=== PATIENT | female | born 1960 | race Caucasian/White ===

== ENCOUNTER 2017-07-23 18:13 | Emergency (ER) | payer OTHER ==
[~2017-07-23 18:13] MED LIST: CARI1TAB34; CARI350T19 PO; GABA300C3 PO; IBUP800 PO; IBUP800T23 PO; LORTA10 PO; ROPI2TAB23 PO; TIZA4 PO
[2017-07-23 18:17] VITALS: BP 158/88; PULSE 79; RESP 16; TEMP 98.6; O2SAT 99
--- NOTE | 2017-07-23 19:47 | RADRPT ---
EXAM DATE/TIME: 07/23/2017 18:41 [place] COMPARISON: No previous studies available for comparison. INDICATIONS : Patient fell on left arm yesterday. Now arm is constantly cold and her wrist wont stay rigid. MEDICAL HISTORY : Fibromyalgia. SURGICAL HISTORY : None. ENCOUNTER: Initial ACUITY: 2 days PAIN SCORE: 2/10 LOCATION: Left forearm. FINDINGS: Two view examination of the left forearm demonstrates no evidence of fracture or dislocation. Bony m ineralization is normal. The soft tissue structures are intact. CONCLUSION: Unremarkable examination of the left forearm. Shilo Nguyễn MD on July 23, 2017 at 19:45 Board Certified Radiologist. This report was verified electronically.
[2017-07-23] MEDS ORDERED: ASPI-183 PO (19:52)
[2017-07-23] MEDS ORDERED: GABA300C5 PO (19:52)
[2017-07-23] MEDS ORDERED: PRED-503 PO (19:56)
--- NOTE | 2017-07-23 20:02 | PD ---
HPI Chief Complaint: Injury Time Seen by Provider: 19:41 Travel History International Travel<30 days: No Contact w/Intl Traveler<30days: No Traveled to known affect area: No History of Present Illness HPI 57-year-old white female presents emergency department with inability to extend her wrist or open her fingers or raise her thumb after sleeping in the chair yesterday. She states that when she had gone to sleep she was able to move her arm. This has persisted throughout the day. She denies drinking a large amount of alcohol. Symptoms are severe. She denies any pain. PFSH Past Medical History Narrative Medical Fibromyalgia, chronic pain,DJD, spinal stenosis Arthritis: Yes (RA) Diminished Hearing: No Fibromyalgia: Yes Immunizations Current: No Tetanus Vaccination: < 5 Years Menopausal: Yes Past Surgical History Surgical History: No Previous Surgery Social History Alcohol Use: No Tobacco Use: Yes (1 PPD) Substance Use: No Allergies-Medications (Allergen,Severity, Reaction): Coded Allergies: diatrizoate meglumine (Unverified Allergy, Severe, Anaphylaxis, 01/16/17) gadobenic acid (Unverified Allergy, Severe, Anaphylaxis, 01/16/17) gadodiamide (Unverified Allergy, Severe, Anaphylaxis, 01/16/17) gadoteridol (Unverified Allergy, Severe, Anaphylaxis, 01/16/17) iodixanol (Unverified Allergy, Severe, Anaphylaxis, 01/16/17) iohexol (Unverified Allergy, Severe, Anaphylaxis, 01/16/17) Sulfa (Sulfonamide Antibiotics) (Unverified Allergy, Mild, 01/16/17) doxycycline (Unverified Allergy, Mild, 01/16/17) erythromycin base (Unverified Allergy, Mild, 01/16/17) iodine (Unverified Allergy, Mild, 01/16/17) methotrexate (Unverified Allergy, Mild, 01/16/17) minocycline (Unverified Allergy, Mild, 01/16/17) potassium iodide (Unverified Allergy, Mild, 01/16/17) povidone-iodine (Unverified Allergy, Mild, 01/16/17) sodium iodide (Unverified Allergy, Mild, 01/16/17) sodium iodide (Unverified Allergy, Mild, 01/16/17) tigecycline (Unverified Allergy, Mild, 01/16/17) Uncoded Allergies: ANTIBIOTICS (Adverse Reaction, Unknown, UNKNOWN, 02/08/14) PT STATES ALL ANTIBIOTICS CAUSE HER TO HAVE A REACTION, COULD NOT STATE EXACT REACTION Reported Meds & Prescriptions Reported Meds & Active Scripts Active Deltasone (Prednisone) 20 Mg Tab 20 Mg PO BID 7 Days Reported Gabapentin 300 Mg Cap 300 Mg PO TID Aspirin 325 Mg Tab 325 Mg PO DAILY Review of Systems Except as stated in HPI: all other systems reviewed are Neg Musculoskeletal: Positive: Arthralgias, Limited ROM, Weakness, Pain Physical Exam Narrative GENERAL: This is a well-nourished, well-developed patient, in no apparent distress. SKIN: No rashes, ecchymoses or lesions. Warm and dry. HEAD: Atraumatic. Normocephalic. EYES: PERRL, EOMI, no discharge or injection. No scleral icterus. EARS: Clear NOSE: Nasal turbinates appear normal. THROAT: Mucosa pink and moist. Airway patent. NECK: Trachea midline. supple, moves head freely. LUNGS: Clear to auscultation. CV: Regular in rhythm. ABDOMEN: Soft nontender. EXT: No clubbing cyanosis or edema. Examination of the left upper extremity reveals a wrist drop. She is unable to extend her wrist, raise her thumb and fingers. no complete sensory loss. Patient does have some hypoesthesia. Data Data Last Documented VS Vital Signs Date Time Temp Pulse Resp B/P (MAP) Pulse Ox O2 Delivery O2 Flow Rate FiO2 07/23/17 18:17 98.6 79 16 158/88 (111) 99 Orders Orders Forearm (2vws) (07/23/17 ) Splint Or Brace Apply/Monitor (07/23/17 19:54) Ed Discharge Order (07/23/17 19:54) [facility] Medical Decision Making Medical Screen Exam Complete: Yes Emergency Medical Condition: Yes Medical Record Reviewed: Yes Interpretation(s) Last 24 hours Impressions Radius/Ulna X-Ray 07/23/17 0000 Signed Impressions: Service Date/Time: Sunday, July 23, 2017 18:41 - CONCLUSION: Unremarkable examination of the left forearm. Shilo Nguyễn MD Differential Diagnosis Differential diagnosis: Fracture, sprain, strain, nerve injury Narrative Course Patient has a radial nerve palsy. Patient's placed in a Velcro wrist splint. Diagnosis Primary Impression: Acute radial nerve palsy of left upper extremity Patient Instructions: General Instructions Additional Instructions: Rest. Elevation. Velcro wrist splint. Prednisone. Follow up with your doctor this week for recheck. Consider physical therapy. Med/Other Pt SpecificInfo: Prescription(s) given Scripts Prednisone (Deltasone) 20 Mg Tab 20 MG PO BID for 7 Days, #14 TAB 0 Refills Prov: Armani Paris MD 07/23/17 Disposition: 01 DISCHARGE HOME Condition: Stable Harrison De La Paz Jul 23, 2017 20:02
== END 2017-07-23 20:21 | disposition home or self-care (01) ==
LOC: NEPD 18:13
DX: G56.32 Lesion of radial nerve, left upper limb (principal); M79.7 Fibromyalgia; M06.9 Rheumatoid arthritis, unspecified; Z72.0 Tobacco use
CPT/HCPCS: 73090; 99283; L3908

== ENCOUNTER 2018-05-15 13:48 | Inpatient (IN) ==
[2018-05-15] MEDS ORDERED: MethylPREDNISolone Sod Succinate Inj 125 MG/2 ML Vial IV.PUSH ONE (14:15)
--- NOTE | 2018-05-15 14:50 | XR ---
EXAM DATE: 05/15/2018 2:42 PM EST AGE/SEX: 58 years / Female INDICATIONS: Short of breath. CLINICAL DATA: This is the patient's initial encounter. Patient reports that signs and symptoms have been present for 1 day and indicates a pain score of 0/10. MEDICAL/SURGICAL HISTORY: . Fibromyalgia. None. COMPARISON: No prior exams available for comparison. FINDINGS: Lungs are moderately hyperinflated. There is consolidation, pleural effusion or pneumothorax. The heart and pulmonary vascularity are normal. The portion of the bony skeleton visualized is unremarkable. CONCLUSION: Moderately hyperinflated otherwise negative Electronically signed by: Derick Rivera MD 05/15/2018 2:48 PM EST
[2018-05-15 14:58] LABS: Baso % (Auto) 0.3 % (0.0-2.0); Hematocrit 47.1 % (35.0-46.0); Hemoglobin 15.8 gm/dL (11.6-15.3); Lymph # (Auto) 1.3 th/mm3 (1.0-4.8); Lymph % (Auto) 10.4 % (9.0-44.0); Mean Corpuscular HGB Conc 33.6 % (32.0-36.0); Mean Corpuscular Hemoglobin 33.4 pg (27.0-34.0); Mean Corpuscular Volume 99.3 fL (80.0-100.0); Mean Platelet Volume 9.4 fL (7.0-11.0); Mono # (Auto) 1.5 th/mm3 (0.0-0.9); Mono % (Auto) 12.1 % (0.0-8.0); Neut # (Auto) 9.6 th/mm3 (1.8-7.7); Neut % (Auto) 77.2 % (16.0-70.0); Platelet Count 247 th/mm3 (150-450); Red Blood Count 4.74 mil/mm3 (4.00-5.30); Red Cell Distribution Width 13.9 % (11.6-17.2); White Blood Count 12.4 th/mm3 (4.0-11.0)
[2018-05-15 15:25] LABS: Alanine Aminotransferase 36 U/L (10-53); Albumin 3.2 g/dL (3.4-5.0); Anion Gap 5 meq/L (5-15); Aspartate Aminotransferase 38 U/L (15-37); Blood Urea Nitrogen 27 mg/dL (7-18); Carbon Dioxide 33.3 meq/L (21.0-32.0); Chloride 100 meq/L (98-107); Glomerular Filtration Rate 81 mL/min (>89); Glucose,Random 143 mg/dL (74-106); Magnesium 2.4 mg/dL (1.5-2.5); Potassium 3.3 meq/L (3.5-5.1); Sodium 138 meq/L (136-145)
[2018-05-15 15:27] LABS: Alkaline Phosphatase 131 U/L (45-117); Total Protein 8.8 g/dL (6.4-8.2)
--- NOTE | 2018-05-15 15:44 | ED ---
HPI General Chief Complaint: Shortness of Breath/Dyspnea Stated Complaint: SOB Time Seen by Provider: 05/15/18 14:14 Source: patient Mode of arrival: EMS Limitations: no limitations History of Present Illness Patient is a 58-year-old female presenting to the emergency department for evaluation of shortness of breath. Patient states it started 1 week ago. She states she has a cough which is productive with clear sputum. She reports subjective fevers and chills, night sweats. Shortness of breath is worse with exertion and when laying flat. She reports chest tightness. She states she has been compliant with Symbicort and pro-air at home. Patient arrives by EMS, she was given 1 DuoNeb, one albuterol treatment and Solu-Medrol in route. Patient is a daily tobacco user, she is not on any oxygen at home. Symptom onset was gradual, symptoms are moderate. Patient denies any chest pain, abdominal pain, headache, dizziness. Related Data Home Medications Medication Instructions Recorded Confirmed albuterol sulfate [ProAir 2 inh INHALATION Q6H 05/15/18 05/15/18 RespiClick] albuterol sulfate [Ventolin HFA] 1 puff INHALATION Q4-6H PRN 05/15/18 05/15/18 budesonide-formoterol [Symbicort] 2 puff INHALATION Q12H 05/15/18 05/15/18 Allergies Allergy/AdvReac Type Severity Reaction Status Date / Time diatrizoate meglumine Allergy Severe Anaphylaxis Verified 05/15/18 13:59 gadobenic acid Allergy Severe Anaphylaxis Verified 05/15/18 13:59 gadodiamide Allergy Severe Anaphylaxis Verified 05/15/18 13:59 gadoteridol Allergy Severe Anaphylaxis Verified 05/15/18 13:59 iodixanol Allergy Severe Anaphylaxis Verified 05/15/18 13:59 iohexol Allergy Severe Anaphylaxis Verified 05/15/18 13:59 doxycycline Allergy Mild Rash Verified 05/15/18 13:59 erythromycin base Allergy Mild Anaphylaxis Unverified 05/15/18 13:59 iodine Allergy Mild Hives Unverified 05/15/18 13:59 methotrexate Allergy Mild Hives Unverified 05/15/18 13:59 minocycline Allergy Mild Hives Unverified 05/15/18 13:59 potassium iodide Allergy Mild Anaphylaxis Unverified 05/15/18 13:59 povidone-iodine Allergy Mild Anaphylaxis Unverified 05/15/18 13:59 sodium iodide Allergy Mild Anaphylaxis Unverified 05/15/18 13:59 sodium iodide Allergy Mild Anaphylaxis Unverified 05/15/18 13:59 Sulfa (Sulfonamide Allergy Mild Hives Verified 05/15/18 13:59 Antibiotics) tigecycline Allergy Mild Hives Unverified 05/15/18 13:59 ANTIBIOTICS AdvReac Unknown UNKNOWN Uncoded 02/08/14 23:22 Review of Systems ROS: all other systems reviewed are negative [facility] Medical History Medical History COPD (chronic obstructive pulmonary disease) (Acute) Hypothyroid (Acute) Radial nerve palsy (Acute) Social History Social History Substance History: No History of Abuse Second Hand Smoke Exposure: No Smoking Status: Current every day smoker Tobacco Type: Cigarettes How Often Do You Have a Drink Containing Alcohol: 4 or more times a week Recent Travel in [facility] within the Last 8 Weeks: No Recent Out of Country Travel within the Last 8 Weeks: No Immunization History Tetanus Immunization: >5 Years Exam Narrative Exam Narrative: GENERAL: Thin, well-developed, alert female. Presenting in no acute distress. SKIN: Focused skin assessment warm/dry. HEAD: Atraumatic. Normocephalic. EYES: Pupils equal and round. No scleral icterus. No injection or drainage. ENT: No nasal bleeding or discharge. Mucous membranes pink and moist. NECK: Trachea midline. No JVD. CARDIOVASCULAR: Regular rate and rhythm. No murmur appreciated. RESPIRATORY: Tachypnea, diminished breath signs throughout. GASTROINTESTINAL: Abdomen soft, non-tender, nondistended. Hepatic and splenic margins not palpable. MUSCULOSKELETAL: No obvious deformities. No clubbing. No cyanosis. No edema. NEUROLOGICAL: Awake and alert. No obvious cranial nerve deficits. Motor grossly within normal limits. Normal speech. PSYCHIATRIC: Appropriate mood and affect; insight and judgment normal. Course Initial Documented Vital Signs Temperature 98.2 F 05/15/18 14:09 Last Documented Vital Signs Temperature 98.2 F 05/15/18 14:09 Pulse Rate 103 H 05/15/18 16:07 Respiratory Rate 20 05/15/18 16:07 Blood Pressure 167/114 H 05/15/18 16:07 Pulse Oximetry 95 05/15/18 16:07 Medical Decision Making MDM Narrative Medical decision making narrative: Patient is a 58-year-old female presenting with shortness of breath. Patient is tachypneic and tachycardic on arrival. Labs and imaging ordered and pending, additional nebulizer treatments ordered. Labs reviewed, white blood cell count of 12.4 with slight left shift. Potassium 3.3, oral replacement ordered. Chest x-ray shows hyperinflation otherwise no acute findings. Heart rate has trended down to low 100s, attempted to ambulate patient on room air to assess O2 saturation, patient became tachypneic and her O2 sat dropped to the upper 70s just by moving around in the bed. Patient will be admitted to improve respiratory status, Dr. Thurston accepted admit. Orders placed. Medical Screen Exam Complete: Yes Emergency Medical Condition: Yes Differential Diagnosis Differential Diagnosis: COPD exacerbation versus pneumonia versus bronchitis versus other Medical Records Medical records reviewed: Yes I reviewed the patient's medical records. Lab Data Lab results reviewed: Yes I reviewed the patient's lab results. Result diagrams: 05/15/18 14:38 05/15/18 14:38 Lab Results 05/15/18 05/15/18 Range/Units 14:38 14:38 WBC 12.4 H (4.0-11.0) th/mm3 RBC 4.74 (4.00-5.30) mil/mm3 Hgb 15.8 H (11.6-15.3) gm/dL Hct 47.1 H (35.0-46.0) % MCV 99.3 (80.0-100.0) fL MCH 33.4 (27.0-34.0) pg MCHC 33.6 (32.0-36.0) % RDW 13.9 (11.6-17.2) % Plt Count 247 (150-450) th/mm3 MPV 9.4 (7.0-11.0) fL Neut % (Auto) 77.2 H (16.0-70.0) % Lymph % (Auto) 10.4 (9.0-44.0) % Barron % (Auto) 12.1 H (0.0-8.0) % Eos % (Auto) 0.0 (0.0-4.0) % Baso % (Auto) 0.3 (0.0-2.0) % Neut # (Auto) 9.6 H (1.8-7.7) th/mm3 Lymph # (Auto) 1.3 (1.0-4.8) th/mm3 Barron # (Auto) 1.5 H (0.0-0.9) th/mm3 Eos # (Auto) 0.0 (0.0-0.4) th/mm3 Baso # (Auto) 0.0 (0.0-0.2) th/mm3 WBC Differential . Differential Comment Auto diff final Sodium 138 (136-145) meq/L Potassium 3.3 L (3.5-5.1) meq/L Chloride 100 (98-107) meq/L Carbon Dioxide 33.3 H (21.0-32.0) meq/L Anion Gap 5 (5-15) meq/L BUN 27 H (7-18) mg/dL Creatinine 0.74 (0.50-1.00) mg/dL Estimated GFR 81 L (>89) mL/min Random Glucose 143 H (74-106) mg/dL Calcium 9.0 (8.5-10.1) mg/dL Magnesium 2.4 (1.5-2.5) mg/dL Total Bilirubin 0.6 (0.2-1.0) mg/dL AST 38 H (15-37) U/L ALT 36 (10-53) U/L Alkaline Phosphatase 131 H (45-117) U/L Total Protein 8.8 H (6.4-8.2) g/dL Albumin 3.2 L (3.4-5.0) g/dL Imaging Data Radiologist's impression: Chest X-Ray 05/15/18 14:15 CONCLUSION: Moderately hyperinflated otherwise negative Discharge Plan Discharge Disposition Patient Disposition: ED Admit(ED Internal Use Only) Discharge Condition Condition: Stable Discharge Order Discharge Orders: ED Use Only Admit Order (Routine); Ordered 05/15/18 Ordered By: Pat Matos Discharge Details Diagnosis: Acute exacerbation of chronic obstructive airways disease Physicians Team ED Provider: Pat Matos ED Midlevel Provider: Raine Valentino Primary Care Provider: UNKNOWN, Attending Provider: Cliff Thurston Discharge Interventions Interventions: Vital Signs Last Done: 05/15/18 16:07 Status ED Status: Admitted Observation Patient
[2018-05-15] MEDS ORDERED: Azithromycin Inj 500 MG in Sodium Chlor 0.9% Inj 250 ML IV.SIG ONE (15:46)
[2018-05-15] MEDS ORDERED: Bisacodyl 10 MG Supp RECTAL PRN (16:39)
--- NOTE | 2018-05-15 16:57 | ECG ---
Date Performed: 05/15/2018 Time Performed: 14:54:58 PTAGE: 58 years EKG: SINUS TACHYCARDIA WITH FREQUENT SUPRAVENTRICULAR PREMATURE COMPLEXES RIGHT ATRIAL ENLARGEME NT POSSIBLE RIGHT VENTRICULAR CONDUCTION DELAY NONSPECIFIC ST & T-WAVE ABNORMALITY ABNORMAL ECG NO PREVIOUS TRACING DOCTOR: Fransisco Barbour Interpretating Date/Time 05/15/2018 16:56:25
[2018-05-15] MEDS: levoFLOXacin 750 MG Tablet PO SCH (18:04)
[2018-05-15] MEDS: Enoxaparin Inj 40 MG/0.4 ML Syringe SQ SCH (18:04)
--- NOTE | 2018-05-15 18:49 | P.HPIM ---
History of Present Illness Service: Hospitalist Primary Care Physician: UNKNOWN Chief Complaint: Shortness of breath. History of Present Illness: Ms. Mccloud is a pleasant 58 year old female with a history of COPD, fibromyalgia who presents to the ED on 05/15/2018 due to worsening shortness of breath, cough and subjective fever, chills. Although she has chronic cough, in the last 7 days, her shortness of breath has been particularly worse. She denies any chest pain, abdominal pain. No changes in bowel or bladder habits. Past medical history: COPD, Fibromyalgia, hypothyroidism Past surgical history: Hysterectomy, cholecystectomy, knee surgery Social history: 40+ years of smoking history, quit 5 days ago, drinks alcohol socially. Family history: Significant for alcoholism Inpatient Certification Inpatient Certification: I certify that the inpatient services were ordered in accordance with Medicare regulations governing the order. This includes certification that hospital inpatient services are reasonable and necessary and in the case of services not specified as inpatient-only under 42 CFR 419.22(n), that they are appropriately provided as inpatient services in accordance to with the 2-midnight benchmark under 43 CFR 412.3(e) Estimated Total Length of Stay (Days): 3 Plans for Post Hospital Care: Home Review of Systems Review of Systems: all other systems reviewed are negative [facility] Medical History Medical History COPD (chronic obstructive pulmonary disease) (Acute) Hypothyroid (Acute) Radial nerve palsy (Acute) Social History Social History Substance History: No History of Abuse Second Hand Smoke Exposure: No Smoking Status: Current every day smoker Tobacco Type: Cigarettes How Often Do You Have a Drink Containing Alcohol: 4 or more times a week Recent Travel in [facility] within the Last 8 Weeks: No Recent Out of Country Travel within the Last 8 Weeks: No Immunization History Tetanus Immunization: >5 Years Medications and Allergies Allergies Allergy/AdvReac Type Severity Reaction Status Date / Time diatrizoate meglumine Allergy Severe Anaphylaxis Verified 05/15/18 13:59 gadobenic acid Allergy Severe Anaphylaxis Verified 05/15/18 13:59 gadodiamide Allergy Severe Anaphylaxis Verified 05/15/18 13:59 gadoteridol Allergy Severe Anaphylaxis Verified 05/15/18 13:59 iodixanol Allergy Severe Anaphylaxis Verified 05/15/18 13:59 iohexol Allergy Severe Anaphylaxis Verified 05/15/18 13:59 doxycycline Allergy Mild Rash Verified 05/15/18 13:59 erythromycin base Allergy Mild Anaphylaxis Verified 05/15/18 17:50 iodine Allergy Mild Hives Verified 05/15/18 17:50 methotrexate Allergy Mild Hives Verified 05/15/18 17:50 minocycline Allergy Mild Hives Verified 05/15/18 17:50 potassium iodide Allergy Mild Anaphylaxis Verified 05/15/18 17:50 povidone-iodine Allergy Mild Anaphylaxis Verified 05/15/18 17:50 sodium iodide Allergy Mild Anaphylaxis Verified 05/15/18 17:50 sodium iodide Allergy Mild Anaphylaxis Verified 05/15/18 17:50 Sulfa (Sulfonamide Allergy Mild Hives Verified 05/15/18 13:59 Antibiotics) tigecycline Allergy Mild Hives Verified 05/15/18 17:50 ANTIBIOTICS AdvReac Unknown UNKNOWN Uncoded 05/15/18 17:50 Home Medications Medication Instructions Recorded Confirmed Type albuterol sulfate [ProAir 2 inh INHALATION Q6H 05/15/18 05/15/18 History RespiClick] albuterol sulfate [Ventolin HFA] 1 puff INHALATION Q4-6H PRN 05/15/18 05/15/18 History budesonide-formoterol [Symbicort] 2 puff INHALATION Q12H 05/15/18 05/15/18 History Active Medications: Active Medications Acetaminophen (Tylenol) 650 mg PO Q4H PRN PRN Reason: Headache, fever, pain 1-4 Al Hydroxide/Mg Hydroxide (Milk Of Magnesia Liq) 30 ml PO Q12H PRN PRN Reason: Mild Constipation Albuterol (Duoneb Neb (Prn)) 1 ampul NEB Q4HR NEB PRN PRN Reason: DYSPNEA Albuterol (Duoneb Neb (Phoebe)) 1 ampul NEB Q6HR WHILE AWAKE NEB [facility] Bisacodyl (Dulcolax Supp) 10 mg RECTAL DAILY PRN PRN Reason: SEVERE CONSITIPATION Enoxaparin Sodium (Lovenox Inj) 40 mg SQ Q24H [facility] Last Admin: 05/15/18 18:04 Dose: 40 mg Lactulose (Lactulose Liq) 30 ml PO DAILY PRN PRN Reason: SEVERE CONSITIPATION Levofloxacin (Levaquin) 750 mg PO Q24H [facility] Last Admin: 05/15/18 18:04 Dose: 750 mg Ondansetron HCl (Zofran Inj) 4 mg IV.PUSH Q6H PRN PRN Reason: NAUSEA OR VOMITING Prednisone (Deltasone) 20 mg PO BID [facility] Stop: 05/20/18 20:59 Senna/Docusate Sodium (Melanie-Colace) 1 tab PO BID [facility] Sennosides (Senokot) 17.2 mg PO Q12H PRN PRN Reason: Moderate Constipation Sodium Chloride (Ns Flush) 2 ml IV.FLUSH BID [facility] Sodium Chloride (Ns Flush) 2 ml IV.FLUSH UNSCH PRN PRN Reason: FLUSH AFTER USING IV ACCESS Physical Exam Vital signs: Last Vital Signs Temp 98.2 F 05/15/18 14:09 Pulse 98 H 05/15/18 18:04 Resp 22 05/15/18 18:04 BP 111/73 05/15/18 18:04 Pulse Ox 96 05/15/18 18:04 Intake & Output 05/13/18 05/14/18 05/15/18 05/16/18 06:59 06:59 06:59 06:59 Intake Total 250 / 250 Balance 250 / 250 Weight 51.256 kg GENERAL: This is a well-nourished, well-developed patient, in no apparent distress. Thin appearance. SKIN: No rashes, ecchymoses or lesions. Warm and dry. HEAD: Atraumatic. Normocephalic. No temporal or scalp tenderness. EYES: Pupils equal round and reactive. No injection or drainage. ENT: Nose without bleeding, purulent drainage or septal hematoma. Airway patent. NECK: Trachea midline. No lymphadenopathy. Supple, nontender, no meningeal signs. CARDIOVASCULAR: Regular rate and rhythm without murmurs, gallops, or rubs. No JVD. RESPIRATORY: Poor air entry, Scattered expiratory wheezes noted, diminished breath sound. GASTROINTESTINAL: Abdomen soft, non-tender, nondistended. No guarding. MUSCULOSKELETAL: Extremities without clubbing, cyanosis, or edema. NEUROLOGICAL: Awake and alert. Cranial nerves II through XII intact. No focal neurological deficits. Normal speech. Results Labs CBC & Chem 7: 05/15/18 14:38 05/15/18 14:38 Imaging Impressions Chest X-Ray 05/15/18 14:15 CONCLUSION: Moderately hyperinflated otherwise negative Caprini VTE Risk Assessment Caprini VTE Risk Assessment: Moderate/High Risk (score >= 2) Caprini Risk Assessment Model: Point Value = 1 Point Value = 2 Point Value = 3 Point Value = 5 Age 41-60 Minor surgery BMI > 25 kg/m2 Swollen legs Varicose veins or History of unexplained or recurrent spontaneous Oral contraceptives or hormone replacement Sepsis (< 1 month) Serious lung disease, including pneumonia (< 1 month) Abnormal pulmonary function Acute myocardial infarction Congestive heart failure (< 1 month) History of inflammatory bowel disease Medical patient at bed rest Age 61-74 Arthroscopic surgery Major open surgery (> 45 min) Laparoscopic surgery (> 45 min) Malignancy Confined to bed (> 72 hours) Immobilizing plaster cast Central venous access Age >= 75 History of VTE Family history of VTE Factor V Leiden Prothrombin 20482A Lupus anticoagulant Anticardiolipin antibodies Elevated serum homocysteine Heparin-induced thrombocytopenia Other congenital or acquired thrombophilia Stroke (< 1 month) Elective arthroplasty Hip, pelvis, or leg fracture Acute spinal cord injury (< 1 month) Prophylaxis Regimen: Total Risk Factor Score Risk Level Prophylaxis Regimen 0-1 Low Early ambulation 2 Moderate Order ONE of the following: *Sequential Compression Device (SCD) *Heparin 5000 units SQ BID 3-4 Higher Order ONE of the following medications: *Heparin 5000 units SQ TID *Enoxaparin/Lovenox 40 mg SQ daily (WT < 150 kg, CrCl > 30 mL/min) *Enoxaparin/Lovenox 30 mg SQ daily (WT < 150 kg, CrCl > 10-29 mL/min) *Enoxaparin/Lovenox 30 mg SQ BID (WT < 150 kg, CrCl > 30 mL/min) AND/OR *Sequential Compression Device (SCD) 5 or more Highest Order ONE of the following medications: *Heparin 5000 units SQ TID (Preferred with Epidurals) *Enoxaparin/Lovenox 40 mg SQ daily (WT < 150 kg, CrCl > 30 mL/min) *Enoxaparin/Lovenox 30 mg SQ daily (WT < 150 kg, CrCl > 10-29 mL/min) *Enoxaparin/Lovenox 30 mg SQ BID (WT < 150 kg, CrCl > 30 mL/min) AND *Sequential Compression Device (SCD) Assessment and Plan Plan Ms. Mccloud is a pleasant 58 year old female with a long history of smoking , COPD, hypothyroidism who presents to the ED due to one week duration of worsening dyspnea, subjective fever and cough production. Acute COPD exacerbation -CXR reviewed with patient. Lungs are heavily hyperinflated and diaphragm is flat -Supplemental O2 to keep O2 > 90%. -Start Prednisone 20mg BID. Although 5 day course maybe adequate, given her severe symptoms, taperred dosing maybe an option -Start Levaquin 750mg Q48 hours. X 3 doses. -DuoNeb phoebe and PRN -At the time of discharge, consider Spiriva. Hypothyrodism -Patient apparently unable to tolerate PO levothyroxine. -In the outpatient seting, Full code. Lovenox.
[2018-05-15] MEDS: predniSONE 20 MG Tablet PO SCH (21:17)
[2018-05-15] MEDS: Senna/Docusate Sodium 8.6/50 MG Tablet PO SCH (22:43)
--- NOTE | 2018-05-16 08:52 | P.PN ---
Subjective Interval history: Follow-up for COPD exacerbation, hypoxia. Patient reports feeling only slightly better overnight. She reports continued cough productive of yellow sputum, with ongoing wheezing and shortness of breath. Denies any fever/chills , but did have some sweats overnight. She also reports some left leg calf pain and cramping. She reports she quit smoking tobacco 1 week ago, however has smoked for many years. She denies any recent travel. She denies any chest pain. She does not wear oxygen at home. She has no other medical complaints at this time. Physical Exam Vital signs: Vital Signs 05/15/18 14:09 05/15/18 14:10 05/15/18 14:23 Temperature 98.2 F Pulse Rate 127 H 105 H Respiratory Rate 25 H Blood Pressure Pulse Oximetry 05/15/18 14:47 05/15/18 15:24 05/15/18 16:06 Temperature Pulse Rate 102 H Respiratory Rate 20 Blood Pressure 172/94 H Pulse Oximetry 98 92 L 05/15/18 16:07 05/15/18 18:04 05/15/18 20:00 Temperature Pulse Rate 103 H 98 H 100 H Respiratory Rate 20 22 19 Blood Pressure 167/114 H 111/73 115/73 Pulse Oximetry 95 96 98 05/15/18 22:44 05/16/18 00:53 05/16/18 02:01 Temperature Pulse Rate 80 Respiratory Rate 19 Blood Pressure 137/63 Pulse Oximetry 95 98 98 05/16/18 02:06 05/16/18 04:00 05/16/18 07:13 Temperature 97.6 F 97.8 F Pulse Rate 85 78 Respiratory Rate 16 16 Blood Pressure 124/75 130/73 Pulse Oximetry 100 93 L 92 L 05/16/18 07:52 Temperature Pulse Rate 92 H Respiratory Rate 16 Blood Pressure Pulse Oximetry 99 Intake & Output 05/15/18 05/16/18 05/16/18 18:59 06:59 18:59 Intake Total 250 / 250 Balance 250 / 250 Weight 51.256 kg 51.256 kg Intake: IV 250 / 250 Azithromycin Inj 500 MG In NS 250 / 250 Inj 250 ML @ 250 mls/hr IV.SIG ONCE ONE Rx#:[id number] Other: Date of Last Bowel Movement 05/15/18 Weight On Admission 162.56 kg Narrative: GENERAL: Thin middle-aged female patient in NAD. SKIN: Warm and dry. No rash. HEENT: Normocephalic. Atraumatic. Pupils equal and round. Mucous membranes pink and moist. NECK: Supple. Trachea midline. CARDIOVASCULAR: Regular rate and rhythm. No murmur appreciated. RESPIRATORY: No accessory muscle use. Significant diffuse wheezing throughout all lung burris with poor air movement. Breath sounds equal bilaterally. GASTROINTESTINAL: Abdomen soft, non-tender, nondistended. Normoactive bowel sounds x4. MUSCULOSKELETAL: No obvious deformities. Extremities without clubbing, cyanosis , or edema. Left calf tender to palpation, no edema bilaterally. NEUROLOGICAL: Awake and alert. No obvious cranial nerve deficits. Moving all extremities spontaneously. Normal speech. PSYCHIATRIC: Appropriate mood and affect; insight and judgment normal. Results - Labs CBC & Chem 7: 05/15/18 14:38 05/15/18 14:38 Laboratory Results - last 24 hr 05/15/18 05/15/18 14:38 14:38 WBC 12.4 H RBC 4.74 Hgb 15.8 H Hct 47.1 H MCV 99.3 MCH 33.4 MCHC 33.6 RDW 13.9 Plt Count 247 MPV 9.4 Neut % (Auto) 77.2 H Lymph % (Auto) 10.4 [place] % (Auto) 12.1 H Eos % (Auto) 0.0 Baso % (Auto) 0.3 Neut # (Auto) 9.6 H Lymph # (Auto) 1.3 [place] # (Auto) 1.5 H Eos # (Auto) 0.0 Baso # (Auto) 0.0 WBC Differential . Differential Comment Auto diff final Sodium 138 Potassium 3.3 L Chloride 100 Carbon Dioxide 33.3 H Anion Gap 5 BUN 27 H Creatinine 0.74 Estimated GFR 81 L Random Glucose 143 H Calcium 9.0 Magnesium 2.4 Total Bilirubin 0.6 AST 38 H ALT 36 Alkaline Phosphatase 131 H Total Protein 8.8 H Albumin 3.2 L - Imaging Impressions Chest X-Ray 05/15/18 14:15 CONCLUSION: Moderately hyperinflated otherwise negative Assessment and Plan - Plan 58-year-old female with history of tobacco use, COPD, hypothyroidism, presents with a one-week history of worsening dyspnea, subjective fevers, and productive cough. Acute COPD exacerbation: Patient with significant wheezing on exam -CXR reviewed, shows hyperinflation, otherwise no acute infiltrate -Continue steroids with IV Solu-Medrol 40 mg q6h -Possible early pneumonia with non-radiographic evidence given purulent cough , will treat with Levaquin 750mg daily -Continue bronchodilators with DuoNeb's q6h [place] and q4h prn -O2 as needed to keep O2 sat > 90%, may need walk test prior to discharge -Continue Symbicort -Minimally improved, continue to monitor closely Tobacco use: Patient reports she quit 1 week ago when she became sick -Counseled on continued cessation Left calf pain: Suspect muscular cramp, however will rule out DVT -Check left lower extremity Doppler ultrasound DVT prophylaxis: Lovenox sq Discharge Planning: Discharge pending further clinical improvement, not yet ready for discharge.
[2018-05-16] MEDS: predniSONE 20 MG Tablet PO SCH (08:59)
[2018-05-16] MEDS: Senna/Docusate Sodium 8.6/50 MG Tablet PO SCH ×3 (08:59→23:07)
--- NOTE | 2018-05-16 17:31 | US ---
EXAM DATE: 05/16/2018 5:28 PM EST AGE/SEX: 58 years / Female INDICATIONS: Calf pain. CLINICAL DATA: This is the patient's initial encounter. Patient reports that signs and symptoms have been present for 1 day and indicates a pain score of 4/10. MEDICAL/SURGICAL HISTORY: Chronic obstructive pulmonary disease. Hypothyroidism. Hysterectomy. COMPARISON: No prior exams available for comparison. TECHNIQUE: Venous ultrasound of both lower extremities was performed from the inguinal ligament to t he proximal calf. Real-time, color Doppler and spectral tracing, compression and augmentation techni ques were used. FINDINGS: Normal compression of the deep venous system from the inguinal region to the proximal calf . No echogenic clot is seen. Normal response of the venous system to augmentation and respiration. CONCLUSION: 1. Negative exam with no evidence of deep venous thrombosis. Electronically signed by: Aquiles Chase MD Board Certified Radiologist 05/16/2018 5:30 PM EST
[2018-05-16] MEDS: Enoxaparin Inj 40 MG/0.4 ML Syringe SQ SCH (18:31)
[2018-05-16] MEDS: levoFLOXacin 750 MG Tablet PO SCH (18:31)
[2018-05-16] MEDS: MethylPREDNISolone Sod Succinate Inj 40 MG/ML Vial IV.PUSH SCH ×2 (18:31→23:08)
[2018-05-16] MEDS: Budesonide-Formoterol 160/4.5 MCG 6 GM Inhaler INH SCH (23:09)
[2018-05-17] MEDS: MethylPREDNISolone Sod Succinate Inj 40 MG/ML Vial IV.PUSH SCH ×4 (03:56→21:40)
[2018-05-17 04:56] LABS: Baso % (Auto) 0.2 % (0.0-2.0); Hematocrit 43.4 % (35.0-46.0); Hemoglobin 14.3 gm/dL (11.6-15.3); Lymph # (Auto) 0.8 th/mm3 (1.0-4.8); Mean Corpuscular HGB Conc 32.9 % (32.0-36.0); Mean Corpuscular Volume 97.1 fL (80.0-100.0); Mean Platelet Volume 9.4 fL (7.0-11.0); Mono # (Auto) 0.4 th/mm3 (0.0-0.9); Mono % (Auto) 2.5 % (0.0-8.0); Neut # (Auto) 14.4 th/mm3 (1.8-7.7); Neut % (Auto) 92.3 % (16.0-70.0); Platelet Count 247 th/mm3 (150-450); Red Blood Count 4.47 mil/mm3 (4.00-5.30); Red Cell Distribution Width 13.5 % (11.6-17.2); White Blood Count 15.6 th/mm3 (4.0-11.0)
[2018-05-17 05:18] LABS: Anion Gap 8 meq/L (5-15); Blood Urea Nitrogen 23 mg/dL (7-18); Carbon Dioxide 30.4 meq/L (21.0-32.0); Chloride 101 meq/L (98-107); Glomerular Filtration Rate Greater Than 89 mL/min (>89); Glucose,Random 151 mg/dL (74-106); Potassium 3.9 meq/L (3.5-5.1); Sodium 139 meq/L (136-145)
--- NOTE | 2018-05-17 08:28 | P.PN ---
Subjective Interval history: Follow-up for COPD exacerbation. Patient reports mild improvement overnight, however still with continued productive cough with yellow sputum, wheezing, shortness of breath, and subjective fever/chills. No documented fevers. Still on oxygen. She does not wear oxygen at home. She states she has a nebulizer but it is broken. She states she does have a nebulizer solution at home. She reported to RN that Symbicort does not work for her and therefore she has refused this medication. 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 She has no other medical complaints at this time. She does not feel ready for discharge. Physical Exam Vital signs: Vital Signs 05/16/18 11:53 05/16/18 14:27 05/16/18 15:19 Temperature 98.1 F 97.5 F L Pulse Rate 77 94 H 106 H Respiratory Rate 18 22 18 Blood Pressure 150/68 H 149/68 H Pulse Oximetry 94 L 90 L 05/16/18 19:34 05/16/18 20:00 05/16/18 22:50 Temperature 97.4 F L Pulse Rate 100 H 78 Respiratory Rate 22 18 Blood Pressure 120/77 Pulse Oximetry 98 92 L 98 05/16/18 23:19 05/17/18 07:28 05/17/18 07:54 Temperature 97.5 F L 97.8 F Pulse Rate 80 78 75 Respiratory Rate 20 22 16 Blood Pressure 120/56 L 141/66 H Pulse Oximetry 94 L 92 L 93 L Intake & Output 05/16/18 05/17/18 05/17/18 18:59 06:59 18:59 Other: Date of Last Bowel Movement 05/15/18 Narrative: GENERAL: Thin middle-aged female patient in [facility]. SKIN: Warm and dry. No rash. HEENT: Normocephalic. Atraumatic. Pupils equal and round. Mucous membranes pink and moist. CARDIOVASCULAR: Regular rate and rhythm. No murmur appreciated. RESPIRATORY: No accessory muscle use. Diffuse wheezing with poor air movement throughout all lung burris, mildly improved. Breath sounds equal bilaterally. GASTROINTESTINAL: Abdomen soft, non-tender, nondistended. Normoactive bowel sounds x4. MUSCULOSKELETAL: No obvious deformities. Extremities without clubbing, cyanosis , or edema. NEUROLOGICAL: Awake and alert. No obvious cranial nerve deficits. Moving all extremities spontaneously. Normal speech. PSYCHIATRIC: Appropriate mood and affect; insight and judgment normal. Results - Labs CBC & Chem 7: 05/17/18 04:08 05/17/18 04:08 Laboratory Results - last 24 hr 05/17/18 05/17/18 04:08 04:08 WBC 15.6 H RBC 4.47 Hgb 14.3 Hct 43.4 MCV 97.1 MCH 32.0 MCHC 32.9 RDW 13.5 Plt Count 247 MPV 9.4 Neut % (Auto) 92.3 H Lymph % (Auto) 5.0 L [place] % (Auto) 2.5 Eos % (Auto) 0.0 Baso % (Auto) 0.2 Neut # (Auto) 14.4 H Lymph # (Auto) 0.8 L [place] # (Auto) 0.4 Eos # (Auto) 0.0 Baso # (Auto) 0.0 WBC Differential . Differential Comment Auto diff final Sodium 139 Potassium 3.9 Chloride 101 Carbon Dioxide 30.4 Anion Gap 8 BUN 23 H Creatinine 0.65 Estimated GFR Greater than 89 Random Glucose 151 H Calcium 9.0 - Imaging Impressions Venous Doppler Study 05/16/18 00:00 CONCLUSION: 1. Negative exam with no evidence of deep venous thrombosis. Assessment and Plan - Plan 58-year-old female with history of tobacco use, COPD, hypothyroidism, presents with a one-week history of worsening dyspnea, subjective fevers, and productive cough. Acute COPD exacerbation: Patient with significant wheezing on exam -CXR reviewed, shows hyperinflation, otherwise no acute infiltrate -Continue steroids with IV Solu-Medrol 40 mg q6h -Possible early pneumonia with non-radiographic evidence given purulent cough , will treat with Levaquin 750mg daily -Continue bronchodilators with DuoNeb's q6h [place] and q4h prn -O2 as needed to keep O2 sat > 90%, may need walk test prior to discharge -Continue Symbicort -Minimally improved, continue to monitor closely -Case management to order nebulizer machines Tobacco use: Patient reports she quit 1 week ago when she became sick -Counseled on continued cessation Left calf pain: Suspect muscular cramp, however will rule out DVT -LLE Doppler ultrasound negative for DVT -imporved DVT prophylaxis: Lovenox sq Discharge Planning: Discharge pending further clinical improvement, not yet ready for discharge.
[2018-05-17] MEDS: Budesonide-Formoterol 160/4.5 MCG 6 GM Inhaler INH SCH ×2 (10:27→21:41)
[2018-05-17] MEDS: Senna/Docusate Sodium 8.6/50 MG Tablet PO SCH ×2 (10:28→21:40)
[2018-05-17] MEDS: levoFLOXacin 750 MG Tablet PO SCH (18:32)
[2018-05-17] MEDS: Gabapentin 100 MG Capsule PO SCH (18:32)
[2018-05-17] MEDS: Enoxaparin Inj 40 MG/0.4 ML Syringe SQ SCH (18:32)
[2018-05-17] MEDS: Acetaminophen 325 MG Tablet PO PRN (21:39)
[2018-05-18] MEDS: MethylPREDNISolone Sod Succinate Inj 40 MG/ML Vial IV.PUSH SCH ×4 (04:36→22:26)
[2018-05-18] MEDS: Senna/Docusate Sodium 8.6/50 MG Tablet PO SCH ×2 (08:52→20:43)
[2018-05-18] MEDS: Gabapentin 100 MG Capsule PO SCH ×3 (08:53→17:09)
[2018-05-18] MEDS: Budesonide-Formoterol 160/4.5 MCG 6 GM Inhaler INH SCH ×2 (08:59→20:43)
[2018-05-18] MEDS: levoFLOXacin 750 MG Tablet PO SCH (17:09)
[2018-05-18] MEDS: Enoxaparin Inj 40 MG/0.4 ML Syringe SQ SCH (17:09)
--- NOTE | 2018-05-18 17:22 | P.PNIM ---
Subjective Interval history: Follow up COPD exacerbation Patient reports no significant improvement in her shortness of breath, wheezing. Denies chest pain, palpitations or lower extremity pain/edema. Moderate dyspnea with mild exertion. Physical Exam Vital signs: Last Vital Signs Temp 97.8 F 05/18/18 11:52 Pulse 106 H 05/18/18 13:17 Resp 18 05/18/18 11:52 BP 158/73 H 05/18/18 11:52 Pulse Ox 98 05/18/18 11:52 Intake & Output 05/16/18 05/17/18 05/18/18 05/19/18 06:59 06:59 06:59 06:59 Intake Total 250 / 250 100 / 100 Balance 250 / 250 100 / 100 Weight 51.256 kg Narrative: GENERAL: Thin middle-aged female patient in [facility]. SKIN: Warm and dry. No rash. HEENT: Normocephalic. Atraumatic. Pupils equal and round. Mucous membranes pink and moist. CARDIOVASCULAR: Regular rate and rhythm. No murmur appreciated. RESPIRATORY: No accessory muscle use. Diffuse wheezing with poor air movement throughout all lung burris, mildly improved. Breath sounds equal bilaterally. GASTROINTESTINAL: Abdomen soft, non-tender, nondistended. Normoactive bowel sounds x4. MUSCULOSKELETAL: No obvious deformities. Extremities without clubbing, cyanosis , or edema. NEUROLOGICAL: Awake and alert. No obvious cranial nerve deficits. Moving all extremities spontaneously. Normal speech. PSYCHIATRIC: Appropriate mood and affect; insight and judgment normal. Results Labs CBC & Chem 7: 05/17/18 04:08 05/17/18 04:08 Assessment and Plan Plan 58-year-old female with history of tobacco use, COPD, hypothyroidism, presents with a one-week history of worsening dyspnea, subjective fevers, and productive cough. Acute COPD exacerbation: Patient with significant wheezing on exam -CXR reviewed, shows hyperinflation, otherwise no acute infiltrate -Continue steroids with IV Solu-Medrol 40 mg q6h, Levaquin 750mg daily, duonebs and supplemental O2 to keep sats > 90% -may need walk test prior to discharge -Continue Symbicort -Minimally improved, continue to monitor closely -Case management to order nebulizer machines Tobacco use: Patient reports she quit 1 week ago when she became sick -Counseled on continued cessation Left calf pain: likely 2/2 muscle cramp -improved -LLE Doppler ultrasound negative for DVT DVT prophylaxis: Lovenox sq Code Status: Full Discussed Condition With: RN, patient Discharge Planning: Home once medically optimized Progress Note: Quality VTE Deep Vein Thrombosis/Pulmonary Embolism Present on Admission: No
[2018-05-19] MEDS: MethylPREDNISolone Sod Succinate Inj 40 MG/ML Vial IV.PUSH SCH ×4 (03:39→21:37)
[2018-05-19] MEDS: Gabapentin 100 MG Capsule PO SCH ×3 (08:39→17:23)
[2018-05-19] MEDS: Senna/Docusate Sodium 8.6/50 MG Tablet PO SCH ×2 (08:39→20:58)
[2018-05-19] MEDS: Budesonide-Formoterol 160/4.5 MCG 6 GM Inhaler INH SCH ×2 (08:39→20:58)
[2018-05-19] MEDS: Acetaminophen 325 MG Tablet PO PRN ×2 (09:27→21:00)
--- NOTE | 2018-05-19 11:52 | P.PNIM ---
Subjective Interval history: Reports breathing is better. She does not of a nebulizer machine that is working. She does not wear oxygen at home. Dry cough. States a friend is coming tomorrow to stay with her to help her at home. She is wanting to eat a regular diet. Physical Exam Vital signs: Last Vital Signs Temp 97.4 F L 05/19/18 04:00 Pulse 76 05/19/18 08:00 Resp 15 05/19/18 08:00 BP 135/69 05/19/18 08:00 Pulse Ox 95 05/19/18 08:00 Intake & Output 05/17/18 05/18/18 05/19/18 05/20/18 06:59 06:59 06:59 06:59 Intake Total 100 / 100 Balance 100 / 100 Weight 46 kg Narrative: GENERAL: Thin middle-aged female patient in [facility]. CARDIOVASCULAR: Regular rate and rhythm. No murmur appreciated. RESPIRATORY: No accessory muscle use. Few expiratory diffuse wheezing with poor air movement throughout all lung burris, mildly improved. GASTROINTESTINAL: Abdomen soft, non-tender, nondistended. Normoactive bowel sounds x4. MUSCULOSKELETAL: No obvious deformities. Extremities without clubbing, cyanosis , or edema. NEUROLOGICAL: Awake and alert. No obvious cranial nerve deficits. Moving all extremities spontaneously. Normal speech. PSYCHIATRIC: Appropriate mood and affect; insight and judgment normal. Results Labs CBC & Chem 7: 05/17/18 04:08 05/17/18 04:08 Assessment and Plan (1) Acute exacerbation of chronic obstructive airways disease: Code(s): J44.1 - Chronic obstructive pulmonary disease with (acute) exacerbation Status: Acute Plan 58-year-old female with history of tobacco use, COPD, hypothyroidism, presents with a one-week history of worsening dyspnea, subjective fevers, and productive cough. Acute COPD exacerbation: -Continue steroids with IV Solu-Medrol 40 mg q6h, Levaquin 750mg daily, duonebs and supplemental O2 to keep sats > 90% -Obtain a walk fit test in the morning. -Continue Symbicort -Minimally improved, continue to monitor closely -Case management arranging outpatient nebulizer machines Leukocytosis likely due to steroids, currently also on Levaquin. Tobacco use: Patient reports she quit 1 week ago when she became sick -Counseled on continued cessation Left calf pain: likely 2/2 muscle cramp -improved -LLE Doppler ultrasound negative for DVT DVT prophylaxis: Lovenox sq Progress Note: Quality VTE Deep Vein Thrombosis/Pulmonary Embolism Present on Admission: No
[2018-05-19] MEDS: levoFLOXacin 750 MG Tablet PO SCH (17:23)
[2018-05-19] MEDS: Enoxaparin Inj 40 MG/0.4 ML Syringe SQ SCH (17:23)
[2018-05-20] MEDS: MethylPREDNISolone Sod Succinate Inj 40 MG/ML Vial IV.PUSH SCH ×3 (04:07→20:14)
[2018-05-20] MEDS: Gabapentin 100 MG Capsule PO SCH ×3 (08:59→19:07)
[2018-05-20] MEDS: Senna/Docusate Sodium 8.6/50 MG Tablet PO SCH ×2 (08:59→20:15)
[2018-05-20] MEDS: Budesonide-Formoterol 160/4.5 MCG 6 GM Inhaler INH SCH (09:00)
--- NOTE | 2018-05-20 09:34 | P.PNIM ---
Subjective Interval history: Still with some shortness of breath and wheezing. Is upset that she is still not be able to get salt for her diet. No complaint of chest pain. Is doing what fit test with respiratory therapist today Physical Exam Vital signs: Last Vital Signs Temp 97.5 F L 05/20/18 08:00 Pulse 92 H 05/20/18 08:39 Resp 22 05/20/18 08:39 BP 166/62 H 05/20/18 08:00 Pulse Ox 98 05/20/18 08:20 Intake & Output 05/18/18 05/19/18 05/20/18 05/21/18 06:59 06:59 06:59 06:59 Intake Total 100 / 100 Balance 100 / 100 Weight 46 kg 46.7 kg Narrative: GENERAL: Thin middle-aged female patient in NAD. CARDIOVASCULAR: Regular rate and rhythm. No murmur appreciated. RESPIRATORY: No accessory muscle use. Few expiratory diffuse wheezing bilaterally GASTROINTESTINAL: Abdomen soft, non-tender, nondistended. Normoactive bowel sounds x4. MUSCULOSKELETAL: No obvious deformities. Extremities without clubbing, cyanosis , or edema. NEUROLOGICAL: Awake and alert to person place time and situation. No obvious cranial nerve deficits. Moving all extremities spontaneously. Normal speech. Results Labs CBC & Chem 7: 05/17/18 04:08 05/17/18 04:08 Assessment and Plan (1) Acute exacerbation of chronic obstructive airways disease: Code(s): J44.1 - Chronic obstructive pulmonary disease with (acute) exacerbation Status: Acute Plan 58-year-old female with history of tobacco use, COPD, hypothyroidism, presents with a one-week history of worsening dyspnea, subjective fevers, and productive cough. Acute COPD exacerbation: -Wean steroids with IV Solu-Medrol 40 mg to every 8 and transition to prednisone in the morning, Levaquin 750mg daily, duonebs and supplemental O2 to keep sats > 90% -Obtain a walk fit test today to determine if patient will need outpatient oxygen. -Continue Symbicort -Case management arranging outpatient nebulizer machines Leukocytosis likely due to steroids, currently also on Levaquin. Tobacco use: Patient reports she quit 1 week ago when she became sick -Counseled on continued cessation Left calf pain: likely 2/2 muscle cramp -improved -LLE Doppler ultrasound negative for DVT DVT prophylaxis: Lovenox sq Possible discharge planning in the morning if patient continues to improve. Progress Note: Quality VTE Deep Vein Thrombosis/Pulmonary Embolism Present on Admission: No
[2018-05-20] MEDS: levoFLOXacin 750 MG Tablet PO SCH (19:07)
[2018-05-20] MEDS: Enoxaparin Inj 40 MG/0.4 ML Syringe SQ SCH (19:08)
[2018-05-21] MEDS: Budesonide-Formoterol 160/4.5 MCG 6 GM Inhaler INH SCH ×2 (00:16→09:07)
[2018-05-21] MEDS: MethylPREDNISolone Sod Succinate Inj 40 MG/ML Vial IV.PUSH SCH (05:30)
[2018-05-21] MEDS: Gabapentin 100 MG Capsule PO SCH ×2 (09:06→12:27)
[2018-05-21] MEDS: Senna/Docusate Sodium 8.6/50 MG Tablet PO SCH (09:07)
--- NOTE | 2018-05-21 09:50 | P.DS ---
DS: Providers Date of admission: 05/15/18 16:21 Primary care physician: UNKNOWN Consults: 05/15/18 16:41 HUB Only Consult Order Routine Consulting Provider: Muriel Llamas Brief History from admission: Ms. Mccloud is a pleasant 58 year old female with a history of COPD, fibromyalgia who presents to the ED on 05/15/2018 due to worsening shortness of breath, cough and subjective fever, chills. Although she has chronic cough, in the last 7 days, her shortness of breath has been particularly worse. She denies any chest pain, abdominal pain. No changes in bowel or bladder habits. Past medical history: COPD, Fibromyalgia, hypothyroidism Past surgical history: Hysterectomy, cholecystectomy, knee surgery Social history: 40+ years of smoking history, quit 5 days ago, drinks alcohol socially. Family history: Significant for alcoholism DS: Diagnosis Discharge Diagnosis (1) Acute exacerbation of chronic obstructive airways disease: Status: Acute DS: Summary 58 year-old white female with a history of tobacco use, COPD admitted for acute COPD exacerbation and was placed on oxygen support and IV Solu-Medrol and Levaquin. She was able to slowly wean off of oxygen and had a walk fit test which determined that she will not need outpatient oxygen support. She reports that she does not have a nebulizer machine that is functioning at home and a home neb and medications were prescribed for her to transition home. At this time, patient has gained maximum benefit from hospitalization and ready to be transitioned home. Time Spent with Patient Total time spent providing and/or coordinating discharge services: Less than 30 minutes Status at Discharge Functional status at discharge: independent ambulation Overall status at discharge: patient is progressing back to baseline Quality: VTE Deep Vein Thrombosis/Pulmonary Embolism Present on Admission: No Exam Narrative Exam Narrative: GENERAL: This is a well-nourished, well-developed patient, in no apparent distress. CARDIOVASCULAR: Regular rate and rhythm RESPIRATORY: Diminished breath sounds bilaterally relatively clear to auscultation GASTROINTESTINAL: Abdomen soft, non-tender, nondistended. Normal active bowel sounds MUSCULOSKELETAL: Extremities without clubbing, cyanosis, or edema. NEURO: Alert & Oriented x4 to person, place, time, situation. Moves all ext x4 Results Impressions ITS Impressions Chest X-Ray 05/15/18 14:15 CONCLUSION: Moderately hyperinflated otherwise negative Venous Doppler Study 05/16/18 00:00 CONCLUSION: 1. Negative exam with no evidence of deep venous thrombosis. Discharge Plan Discharge Disposition Patient Disposition: 01 Discharge Home Discharge Condition Condition: Stable Discharge Order Discharge Orders: Discharge Order (Routine); Ordered 05/21/18 Ordered By: Marge Schmitz Physicians Team Primary Care Provider: UNKNOWN, Attending Provider: Marge Schmitz Other Providers: Muriel Llamas Rxs /Orders / Referrals /Forms Prescriptions: New levofloxacin 750 mg Tablet 750 mg PO Q24H Qty: 3 RF: 0 prednisone 20 mg Tablet 40 mg PO DAILY Qty: 14 RF: 0 tiotropium bromide [Spiriva Respimat] 1.25 mcg/actuation mist 2 inh INHALATION DAILY Qty: 4 RF: 0 gabapentin 100 mg Capsule 200 mg PO TID Qty: 60 RF: 0 albuterol sulfate 2.5 mg/0.5 mL solution for nebulization 2.5 mg INHALATION Q4-6H PRN (Reason: shortness of breath or wheezing) Qty: 30 RF: 1 Continue albuterol sulfate [Ventolin HFA] 90 mcg/actuation Hfa Aerosol Inhaler 1 puff INHALATION Q4-6H PRN (Reason: Shortness Of Breath) RF: 0 budesonide-formoterol [Symbicort] 160-4.5 mcg/actuation Hfa Aerosol Inhaler 2 puff INHALATION Q12H RF: 0 albuterol sulfate [ProAir RespiClick] 90 mcg/actuation Aerosol Powdr Breath Activated 2 inh INHALATION Q6H RF: 0 Ambulatory Orders / Order Sets / DME: Nebulizer Adult Kit (1 kit) (Routine) Location: Determined by Patient Ordered By: Krystal Gonzalez Referrals: UNKNOWN, [Primary Care Provider] - See Instructions ( Please call the primary care physician's physician's office to book the appointment to be seen within 1 week.) Discharge Instructions Patient Printed Instructions: Prednisone (By mouth), Gabapentin (By mouth), Levofloxacin (By mouth), COPD (Chronic Obstructive Pulmonary Disease) (DC), How to Use a Nebulizer (DC) Post Discharge Care Plan Care Plan Goals: Discharge Care Plan Goals for COPD You have been diagnosed with chronic obstructive pulmonary disease (COPD). This is a name given to a group of diseases that limit the flow of air in and out of your lungs. This makes it harder to breathe. With COPD, you are also more likely to get lung infections. COPD includes chronic bronchitis and emphysema. COPD is most often caused by heavy, long-term cigarette smoking. Directions to Meet your Goals: 1. Quit smoking: * If you smoke, quit. It is the best thing you can do for your COPD and your overall health. * Join a stop-smoking program. There are even telephone, text message, and Internet programs to help you quit. * Ask your doctor about medicines or other methods to help you quit. * Ask family members to quit smoking as well. * Don't allow people to smoke in your home, in your car, or when they are around you. 2. Protect yourself from infection: * Wash your hands often. Do your best to keep your hands away from your face. Most germs are spread from your hands to your mouth. * Get a flu shot every year. Also ask your provider about pneumonia vaccines. * Avoid crowds. It's especially important to do this in the winter when more people have colds and flu. * To stay healthy, get enough sleep, exercise regularly, and eat a balanced diet. You should: -Get about 8 hours of sleep every night. -Try to exercise for at least 30 minutes on most days. -Have healthy foods including fruits and vegetables, 100% whole grains, lean meats and fish, and low-fat dairy products. -Try to stay away from foods high in fats and sugar. 3. Take your medicines: * Take your medicines exactly as directed. Don't skip doses. 4. Manage you stress: Stress can make COPD worse. Use this stress management technique: * Find a quiet place and sit or lie in a comfortable position. * Close your eyes and perform breathing exercises for several minutes. 5. Pulmonary rehabilitation: * Pulmonary rehab can help you feel better. These programs include exercise, breathing techniques, information about COPD, counseling, and help for smokers. * Ask your doctor or your local hospital about programs in your area. 6. When to call your doctor: Call doctor immediately if you have any of the following: Shortness of breath, wheezing, or coughing Increased mucus Yellow, green, bloody, or smelly mucus Fever or chills Tightness in your chest that does not go away with rest or medicine An irregular heartbeat or a feeling that your heart is beating very fast Swollen ankles 7. Follow-up: Do Not miss your follow-up appointment. Keep up with all your appointments and yearly check ups Status ED Status: Left Department
[2018-05-21] MEDS ORDERED: predniSONE 20 MG Tablet PO SCH (12:00)
[2018-05-21 16:09] VITALS: BP 147/84; TEMP 97.6
[2018-05-21 19:02] VITALS: PULSE 107; RESP 18
[2018-05-21 19:03] VITALS: O2SAT 94
== END 2018-05-21 19:20 | disposition home or self-care (01) ==
LOC: NEDA 13:48 → NEPC 13:48 → OBSVTOIN 16:21 → NEDH 20:59 → NEPHCDU 05-16 01:15 → N04 05-18 13:57
PROVIDERS: ADMIT Internal Medicine; ATTEND Internal Medicine